=== PATIENT | female | born 1970 | race Caucasian/White ===

== ENCOUNTER 2017-08-04 11:50 | Emergency (ER) | payer OTHER, MEDICARE ==
[~2017-08-04 11:50] MED LIST: EXEN5PEN2 SQ; HYDR12.530 PO; INSU100V12 SQ; METO-296 PO; METO50TA9 PO; ONDA4TAB9 PO; PANT40TA25 PO; SUCR1TAB2 PO
[2017-08-04] MEDS ORDERED: ONDANSETRON HCL 4 MG/2 ML VIAL IVP ONE (12:11)
[2017-08-04 13:35] LABS: POTASSIUM 3.2 mmol/L (3.5-5.1)
[2017-08-04 13:37] LABS: BASOPHILS % (AUTO) 0.4 % (0.0-5.0); EOSINOPHILS % (AUTO) 0.2 % (0.0-8.0); HEMATOCRIT 44.1 % (36-48); LYMPHOCYTES % (AUTO) 8.2 % (21.0-51.0); MEAN CORPUSCULAR HEMOGLOBIN 29.5 pg (27.0-33.0); MEAN CORPUSCULAR HGB CONC 33.8 g/dL (32.0-36.0); MEAN CORPUSCULAR VOLUME 87.3 fL (79-99); MONOCYTES % (AUTO) 3.1 % (3.0-13.0); NEUTROPHILS % (AUTO) 88.1 % (40.0-77.0); PLATELET COUNT (AUTO) 312 K/uL (130-400); RED BLOOD CELL COUNT(AUTO) 5.06 MIL/uL (4.00-5.50); WHITE BLOOD COUNT (AUTO) 14.3 K/uL (4.8-10.8)
[2017-08-04] MEDS ORDERED: METOCLOPRAMIDE 10 MG/2 ML VIAL ONE (13:39)
[2017-08-04] MEDS ORDERED: FAMOTIDINE/PF 20 MG/2 ML VIAL IV ONE (13:41)
[2017-08-04 13:50] LABS: INR 0.95 (0.85-1.15)
[2017-08-04 13:52] LABS: ALBUMIN 3.5 g/dL (3.5-5.0); BILIRUBIN,TOTAL 0.5 mg/dL (0.2-1.0); TOTAL PROTEIN, SERUM 7.3 g/dL (6.0-8.3)
[2017-08-04] MEDS ORDERED: ASPIRIN 81MG TAB.CHEW ONE (15:51)
[2017-08-04] MEDS ORDERED: SODIUM CHLORIDE 0.9% 1000ML 1,000 ML IV ONE (15:51)
[2017-08-04 16:04] LABS: APPEARANCE,URINE Clear (CLEAR); BILIRUBIN,URINE Negative (NEGATIVE); COLOR,URINE Yellow (YELLOW); GLUCOSE, URINE (UA) >=1000 mg/dL (NEGATIVE); KETONES,URINE 40 mg/dL (NEGATIVE); LEUKOCYTE ESTERASE ,URINE Negative (NEGATIVE); NITRATE,URINE Negative (NEGATIVE); OCCULT BLOOD,URINE Negative (NEGATIVE); PH,URINE 5.5 (5.0-8.0); PROTEIN,URINE Negative (NEGATIVE); UROBILINOGEN,URINE 0.2 mg/dL (0.2-1.0)
[2017-08-04 16:09] LABS: AMPHET/METH SCREEN,URINE NEGATIVE (NEGATIVE); BARBITURATE SCREEN, URINE NEGATIVE (NEGATIVE); BENZODIAZEPINES SCREEN,URINE NEGATIVE (NEGATIVE); CANNABINOID SCREEN,URINE POSITIVE (NEGATIVE); COCAINE SCREEN,URINE NEGATIVE (NEGATIVE); OPIATE SCREEN,URINE NEGATIVE (NEGATIVE); PHENCYCLIDINE SCREEN,URINE NEGATIVE (NEGATIVE)
[2017-08-04 16:15] LABS: BACTERIA,URINE Moderate /HPF (None Seen); RBC,URINE 0-1 /HPF (0-1); SQUAMOUS EPITHELIAL CELL,UR Rare /LPF (0-2)
== END 2017-08-04 17:35 | disposition short-term general hospital (02) ==
LOC: EDH 11:50
DX: I63.8 Other cerebral infarction (principal); E11.9 Type 2 diabetes mellitus without complications; Z79.4 Long term (current) use of insulin; Z88.6 Allergy status to analgesic agent
CPT/HCPCS: 36415; 70450; 70551; 80053; 80305; 81001; 82550; 82553; 82948; 83690; 84484; 85025; 85610; 85730; 93005; 96361; 96374; 96375; 99285; J2405; J2765; J3490; J7030

== ENCOUNTER 2019-07-11 14:25 | Observation (INO) | payer MEDICARE, OTHER ==
[~2019-07-11] VITALS: Ht 165.1 cm; Wt 81.9 kg
[~2019-07-11 14:25] MED LIST changes: +ONDA-104 PO; -ONDA4TAB9 PO
[2019-07-11 15:04] LABS: BASOPHILS % (AUTO) 0.5 % (0.0-5.0); EOSINOPHILS % (AUTO) 3.4 % (0.0-8.0); HEMATOCRIT 41.5 % (36-48); LYMPHOCYTES % (AUTO) 20.8 % (21.0-51.0); MEAN CORPUSCULAR HGB CONC 33.5 g/dL (32.0-36.0); MEAN CORPUSCULAR VOLUME 92.4 fL (79-99); MONOCYTES % (AUTO) 4.9 % (3.0-13.0); NEUTROPHILS % (AUTO) 70.1 % (40.0-77.0); PLATELET COUNT (AUTO) 266 K/uL (130-400); RED BLOOD CELL COUNT(AUTO) 4.49 MIL/uL (4.00-5.50); RED CELL DISTRIBUTION WIDTH 12.3 % (11.0-15.5); WHITE BLOOD COUNT (AUTO) 9.4 K/uL (4.8-10.8)
[2019-07-11 15:05] LABS: APPEARANCE,URINE CLEAR (CLEAR); BILIRUBIN,URINE NEGATIVE (NEGATIVE); COLOR,URINE YELLOW (YELLOW); GLUCOSE, URINE (UA) >=1000 mg/dL (NEGATIVE); KETONES,URINE NEGATIVE (NEGATIVE); LEUKOCYTE ESTERASE ,URINE NEGATIVE (NEGATIVE); NITRATE,URINE NEGATIVE (NEGATIVE); OCCULT BLOOD,URINE NEGATIVE (NEGATIVE); PROTEIN,URINE NEGATIVE (NEGATIVE); UROBILINOGEN,URINE 0.2 mg/dL (0.2-1.0)
[2019-07-11 15:16] LABS: POTASSIUM 4.4 mmol/L (3.5-5.1)
[2019-07-11 15:17] LABS: AMORPHOUS SEDIMENT,UR Moderate /LPF (None Seen); BACTERIA,URINE Moderate /HPF (None Seen); MUCUS,URINE Moderate LPF (None Seen); SQUAMOUS EPITHELIAL CELL,UR Many /HPF (0-2)
[2019-07-11 15:20] LABS: ALBUMIN 3.3 g/dL (3.5-5.0); BILIRUBIN,TOTAL 0.3 mg/dL (0.2-1.0)
[2019-07-11 15:21] LABS: INR 0.94 (0.85-1.15); PARTIAL THROMBOPLASTIN TIME 25.3 SEC (26.3-35.5); PROTHROMBIN TIME 9.9 SEC (9.6-11.6)
[2019-07-11] MEDS ORDERED: IOHEXOL-350 75 ML VIAL IV ONE (15:35)
[2019-07-11 17:04] LABS: AMPHET/METH SCREEN,URINE NEGATIVE (NEGATIVE); BARBITURATE SCREEN, URINE NEGATIVE (NEGATIVE); BENZODIAZEPINES SCREEN,URINE NEGATIVE (NEGATIVE); CANNABINOID SCREEN,URINE POSITIVE (NEGATIVE); COCAINE SCREEN,URINE NEGATIVE (NEGATIVE); OPIATE SCREEN,URINE NEGATIVE (NEGATIVE); PHENCYCLIDINE SCREEN,URINE NEGATIVE (NEGATIVE)
[2019-07-11] MEDS ORDERED: GLUCAGON 1MG KIT 1 MG ML IM PRN (19:15)
[2019-07-11] MEDS ORDERED: DEXTROSE 50%-WATER 50 ML DISP.SYRIN IV PRN (19:15)
[2019-07-11] MEDS ORDERED: SODIUM CHLORIDE 0.9% 1000ML 1,000 ML IV ONE (20:11)
[2019-07-11] MEDS ORDERED: ACETAMINOPHEN 325 MG TAB ONE (20:23)
[2019-07-11] MEDS ORDERED: ATORVASTATIN CALCIUM 20 MG TABLET ONE (20:53)
[2019-07-11] MEDS ORDERED: FAMOTIDINE/PF 20 MG/2 ML VIAL IV ONE (20:53)
[2019-07-11] MEDS ORDERED: ATORVASTATIN CALCIUM 20 MG TABLET PO SCH (21:00)
[2019-07-11] MEDS: INSULIN HUMULIN R 100 UNIT/ML 3ML SQ SCH (21:00)
[2019-07-11] MEDS: FAMOTIDINE/PF 20 MG/2 ML VIAL IV SCH (21:00)
[2019-07-11] MEDS ORDERED: HYDRALAZINE HCL 20 MG/ML VIAL IV PRN (21:45)
[2019-07-11] MEDS ORDERED: INSULIN HUMULIN R 100 UNIT/ML 3ML ONE (22:10)
[2019-07-11 22:55] VITALS: BP 146/85
[2019-07-11] MEDS ORDERED: CLOP75TA32 PO (23:07)
[2019-07-11] MEDS ORDERED: ATOR40TA69 PO (23:07)
[2019-07-11] MEDS ORDERED: SERT100T12 PO (23:07)
[2019-07-11] MEDS ORDERED: METO-408 PO (23:07)
[2019-07-11] MEDS ORDERED: TRAZ-185 PO (23:07)
[2019-07-12 04:00] VITALS: BP 158/81
[2019-07-12 05:02] LABS: BASOPHILS % (AUTO) 0.8 % (0.0-5.0); EOSINOPHILS % (AUTO) 7.4 % (0.0-8.0); HEMATOCRIT 40.9 % (36-48); LYMPHOCYTES % (AUTO) 27.3 % (21.0-51.0); MEAN CORPUSCULAR HEMOGLOBIN 30.7 pg (27.0-33.0); MEAN CORPUSCULAR HGB CONC 32.5 g/dL (32.0-36.0); MEAN CORPUSCULAR VOLUME 94.5 fL (79-99); MONOCYTES % (AUTO) 7.6 % (3.0-13.0); NEUTROPHILS % (AUTO) 56.6 % (40.0-77.0); PLATELET COUNT (AUTO) 259 K/uL (130-400); RED BLOOD CELL COUNT(AUTO) 4.33 MIL/uL (4.00-5.50); RED CELL DISTRIBUTION WIDTH 12.4 % (11.0-15.5); WHITE BLOOD COUNT (AUTO) 8.8 K/uL (4.8-10.8)
[2019-07-12] MEDS ORDERED: ACETAMINOPHEN 325 MG TAB PO PRN (05:30)
[2019-07-12 05:45] LABS: CREATINE KINASE, TOTAL 86 U/L (21-232); MYOGLOBIN 52 ng/mL (10-92); TROPONIN I < 0.04 ng/mL (0.00-0.06)
[2019-07-12 05:57] LABS: ALANINE AMINOTRANSFERASE 19 U/L (12-78); ALBUMIN 3.2 g/dL (3.5-5.0); ASPARTATE AMINOTRANSFERASE 13 U/L (10-37); BILIRUBIN,TOTAL 0.2 mg/dL (0.2-1.0); CARBON DIOXIDE 27 mmol/L (21-32); CHLORIDE 105 mmol/L (101-111); GLOMERULAR FILTR. RATE CALC 63 mL/min (>60); GLUCOSE,RANDOM 132 mg/dL (70-105); POTASSIUM 3.9 mmol/L (3.5-5.1); SODIUM SERUM 139 mmol/L (136-145); TOTAL PROTEIN, SERUM 6.6 g/dL (6.0-8.3); UREA NITROGEN, BLOOD 13 mg/dL (7-18)
[2019-07-12] MEDS: ONDANSETRON HCL 4 MG/2 ML VIAL IVP PRN (05:58)
[2019-07-12] MEDS: INSULIN HUMULIN R 100 UNIT/ML 3ML SQ SCH ×4 (06:49→20:33)
[2019-07-12 08:00] VITALS: BP 149/77
[2019-07-12] MEDS ORDERED: ENOXAPARIN SODIUM 30 MG/0.3 ML SQ SCH (09:00)
--- NOTE | 2019-07-12 09:15 | NUR ---
COGNITIVE-LINGUISTIC EVAL COMPLETED. PT AT BASELINE. EVALUATION: Pt AAOX3 INDEPENDENTLY. Pt ABLE TO REQUEST WANTS AND NEEDS INDEPENDENTLY. Pt ABLE TO ANSWER SIMPLE YES/NO QUESTIONS AND OPEN ENDED QUESTIONS. Pt INTELLIGIBLE AT 100% ACCURACY DURING RUNNING SPEECH. Pt ABLE TO STATE ANSWERS TO SAFETY AWARENESS QUESTIONS. Pt ABLE TO RECALL DETAILS OF EVENTS THAT OCCURRED DURING THE DAY. Pt ANXIOUS AT THE TIME OF THE EVALUATION, AND STATED THAT SHE WAS EASILY ANGRY BY ISSUES. Pt CURRENTLY AT BASELINE. NURSE INFORMED Pt REQUESTING PSYCHIATRIC CONSULT AT THIS TIME. G-CODES SPOKEN LANGUAGE EXPRESSION: [id number] Addendum: 07/12/19 at 1052 by LEILANI THOMPSON [facility] Amended: Links added.
[2019-07-12] MEDS: CLOPIDOGREL BISULFATE 75 MG TAB PO SCH (10:04)
[2019-07-12] MEDS: FAMOTIDINE/PF 20 MG/2 ML VIAL IV SCH ×2 (10:04→20:32)
--- NOTE | 2019-07-12 10:28 | NUR ---
DYSPHAGIA EVAL COMPLETED. -S/S OF ASPIRATION. RECOMMEND REGULAR TEXTURE, THIN LIQUIDS; PILLS WHOLE WITH LIQUIDS. Addendum: 07/12/19 at 1030 by LEILANI THOMPSON, [facility] Amended: Links added.
[2019-07-12 11:52] VITALS: BP 131/81
[2019-07-12] MEDS: KETOROLAC TROMETHAMINE 15MG/ML IV PRN ×2 (13:16→20:32)
[2019-07-12 16:00] VITALS: BP 135/73
--- NOTE | 2019-07-12 16:00 | NUR ---
CM NOTE NEW REFERRAL FOR [facility], MEET WITH PATIENT IN ROOM, JAMES SIGNED, CLINICALS AND NOTES FAXED TO [facility], PER UNA, JOSE. PENDING AUTHORIZATION. CM TO FOLLOW UP ACCORDINGLY.
--- NOTE | 2019-07-12 16:40 | NUR ---
Initial Assessment Patient lives alone. Emergency contact is friend/provider, Fatemeh Cisneros, . She has no home health but does have [facility] with [facility].5 hours a week. DME: glucometer (uses insulin). Patient states she needs help with ADL's and does not drive. PCP is Dr. Alvaro Wright at [facility] in [place]. Pharmacy is [facility] in [facility]. order for referral for inpatient rehab. CM, Katherine Hernandez, met with patient and obtained signature for JAMES/Choice form. Referral sent. Pending acceptance. Addendum: 07/12/19 at 1644 by OSCAR JENNINGS SS Amended: Links added.
--- NOTE | 2019-07-12 17:00 | NUR ---
NOTE DR FLORIAN CAME AND ASSESSED PATIENT SAID NO MRI WAS NEEDED ESPECIALLY SICNE PATIENT IS NOT CANDIDATE BECAUSE OF NERVE STIMULATOR SHE HAS FOR LOWER BACK PAIN. SHE WILL BE EVALUATED BY INPATIENT REHANB TOMORROW AND SHE WILL NEED CONSULT WITH INTERVENTIONAL NEUROLOGIST SINCE SHE FAILED TO FOLLOW UP WITH THEM 3 YEASR AGO AFTER SHE HAD FIRST STROKE. NADER UNDERSTANDS SHE NEEDS TO DO THIS AND SHE IS WILLING ACCORDING TO HER AT THIS TIME AND WHAT SHE SPOKE TO DR FLORIAN ABOUT. CASE MANAGEMENT WORKING ON TRANSFER.
[2019-07-12] MEDS: IBUPROFEN 400 MG TABLET PO SCH ×2 (17:52→20:30)
[2019-07-12] MEDS: ASPIRIN 81 MG EC TAB PO SCH (17:52)
[2019-07-12 20:00] VITALS: BP 168/71
[2019-07-12] MEDS ORDERED: TRAZODONE HCL 50 MG TAB PO SCH (21:00)
[2019-07-12] MEDS ORDERED: ATORVASTATIN CALCIUM 40 MG TABLET PO SCH (21:00)
[2019-07-13] VITALS: BP 159/78
[2019-07-13] MEDS: IBUPROFEN 400 MG TABLET PO SCH ×4 (00:30→13:42)
[2019-07-13 04:00] VITALS: BP 140/70
[2019-07-13] MEDS: INSULIN HUMULIN R 100 UNIT/ML 3ML SQ SCH ×2 (06:31→13:49)
[2019-07-13] MEDS: KETOROLAC TROMETHAMINE 15MG/ML IV PRN (07:37)
[2019-07-13 08:00] VITALS: BP 130/78
[2019-07-13] MEDS ORDERED: CLOPIDOGREL BISULFATE 75 MG TAB PO SCH (09:00)
[2019-07-13] MEDS ORDERED: SERTRALINE HCL 50 MG TABLET PO SCH (09:00)
[2019-07-13] MEDS ORDERED: METOPROLOL SUCCINATE 50 MG TAB.SR.24H PO SCH (09:00)
[2019-07-13] MEDS: FAMOTIDINE/PF 20 MG/2 ML VIAL IV SCH (09:29)
[2019-07-13] MEDS: CLOPIDOGREL BISULFATE 75 MG TAB PO SCH (09:29)
[2019-07-13] MEDS: ASPIRIN 81 MG EC TAB PO SCH (09:31)
--- NOTE | 2019-07-13 11:11 | NUR ---
CM NOTE PER UNA AT IRU, PATIENT DENIED DUE TO HIGH MOBILITY AND FUNCTION. DR. STORY MADE AWARE. DC PLAN CHANGED, PATIENT TO FOLLOW UP WITH PCP FOR REFERRAL FOR EITHER HH WITH PT OR OUTPATIENT PT. PATIENT VERBALIZED UNDERSTANDING OF DC PLAN. CEM VELARDE, PRIMARY NURSE, MADE AWARE. POSSIBLE DISCHARGE HOME TODAY.
[2019-07-13 12:00] VITALS: BP 128/56
[2019-07-13] MEDS ORDERED: ASPI-1197 PO (13:30)
[2019-07-13] MEDS ORDERED: TRAZ-185 PO (13:30)
[2019-07-13] MEDS ORDERED: SERT100T12 PO (13:30)
[2019-07-13] MEDS ORDERED: CLOP75TA32 PO (13:30)
[2019-07-13] MEDS ORDERED: METO-408 PO (13:30)
[2019-07-13] MEDS: ONDANSETRON HCL 4 MG/2 ML VIAL IVP PRN (13:42)
[2019-07-13 16:00] VITALS: BP 123/66
--- NOTE | 2019-07-13 17:08 | NUR ---
Discharge instructions reviewed, prescriptions given and patient notified to go to PCP for referral to Dr. Rock's as requested by office for follow up in 2 weeks. Also provided patient phone number and Dr. west to schedule appointments with Dr. Adair. Stroke symptoms reviewed and educated on importance of seeking emergency care as soon as symptoms present. Importance of continuing with antiplatelet therapy to prevent stroke enforced. Patient verbalized understanding if all instructions.
== END 2019-07-13 17:15 | disposition home or self-care (01) ==
LOC: EDH 14:25 → EDHIP 18:51 → 3DH 21:41
PROVIDERS: ADMIT Internal Medicine; ATTEND Internal Medicine
DX: I69.354 Hemiplegia and hemiparesis following cerebral infarction affecting left non-dominant side (principal); I10 Essential (primary) hypertension; E11.9 Type 2 diabetes mellitus without complications; F32.9 Major depressive disorder, single episode, unspecified; F41.9 Anxiety disorder, unspecified; F19.10 Other psychoactive substance abuse, uncomplicated; Z91.19 Patient's noncompliance with other medical treatment and regimen; Z86.73 Personal history of transient ischemic attack (TIA), and cerebral infarction without residual deficits; Z87.891 Personal history of nicotine dependence; Z90.89 Acquired absence of other organs; Z90.49 Acquired absence of other specified parts of digestive tract; Z88.5 Allergy status to narcotic agent; Z79.82 Long term (current) use of aspirin; Z79.891 Long term (current) use of opiate analgesic; Z79.4 Long term (current) use of insulin; Z79.899 Other long term (current) drug therapy; W01.0XXA Fall on same level from slipping, tripping and stumbling without subsequent striking against object, initial encounter; Y93.01 Activity, walking, marching and hiking; Y92.512 Supermarket, store or market as the place of occurrence of the external cause
CPT/HCPCS: 36415 ×2; 70450; 70496; 70498; 71045; 80053 ×2; 80305; 81001; 82550 ×2; 82948 ×7; 83036; 83721; 83874; 84484 ×2; 85025 ×2; 85610; 85730; 92522; 92610; 93005; 96372 ×2; 96374; 96375; 96376 ×2; 97161; 99284; G0378 ×45; G8978; G8979; G8980; G8981; G8982; G8983; J1815 ×2; J1885 ×3; J2405 ×2; J3490 ×4; J7030; Q9967

== ENCOUNTER 2020-09-16 10:20 | Emergency (ER) | payer OTHER ==
[~2020-09-16 10:20] MED LIST changes: +ASPI-1197 PO; +ATOR40TA69 PO; +CLOP75TA32 PO; -EXEN5PEN2 SQ; -HYDR12.530 PO; -INSU100V12 SQ; -METO-296 PO; +METO-408 PO; -METO50TA9 PO; -ONDA-104 PO; -PANT40TA25 PO; +SERT-440 PO; -SUCR1TAB2 PO; +TRAZ-185 PO
[2020-09-16] MEDS ORDERED: ACETAMINOPHEN 500 MG TABLET ONE (11:05)
== END 2020-09-16 12:13 | disposition home or self-care (01) ==
LOC: EDH 10:20
DX: S39.012A Strain of muscle, fascia and tendon of lower back, initial encounter (principal); S70.02XA Contusion of left hip, initial encounter; E10.8 Type 1 diabetes mellitus with unspecified complications; I10 Essential (primary) hypertension; F14.10 Cocaine abuse, uncomplicated; Z88.6 Allergy status to analgesic agent; Z90.710 Acquired absence of both cervix and uterus; Y08.89XA Assault by other specified means, initial encounter; Y93.89 Activity, other specified; Y92.89 Other specified places as the place of occurrence of the external cause; Y99.8 Other external cause status
CPT/HCPCS: 72040; 72100; 73502

== ENCOUNTER 2022-11-07 14:03 | Emergency (ER) | payer OTHER ==
[~2022-11-07] VITALS: Ht 165.1 cm; Wt 77.1 kg
[2022-11-07] MEDS ORDERED: 0.9%NACL 1000ML 1,000 ML IV ONE (17:30)
[2022-11-07 18:10] LABS: APPEARANCE,URINE CLEAR (CLEAR); BILIRUBIN,URINE NEGATIVE (NEGATIVE); COLOR,URINE COLORLESS (YELLOW); GLUCOSE, URINE (UA) NEGATIVE (NEGATIVE); KETONES,URINE NEGATIVE (NEGATIVE); LEUKOCYTE ESTERASE ,URINE NEGATIVE Leu/uL (NEGATIVE); NITRATE,URINE NEGATIVE (NEGATIVE); OCCULT BLOOD,URINE NEGATIVE (NEGATIVE); PROTEIN,URINE NEGATIVE (NEGATIVE); UROBILINOGEN,URINE 0.2 mg/dL (0.2-1.0)
[2022-11-07 18:14] LABS: BACTERIA,URINE RARE /HPF (None Seen); MUCUS,URINE RARE LPF (None Seen); RBC,URINE 0-1 /HPF (0-1)
[2022-11-07 18:17] LABS: BASOPHILS % (AUTO) 0.6 % (0.0-5.0); EOSINOPHILS % (AUTO) 2.4 % (0.0-8.0); HEMATOCRIT 37.8 % (36-48); LYMPHOCYTES % (AUTO) 40.7 % (21.0-51.0); MEAN CORPUSCULAR HEMOGLOBIN 29.8 pg (27.0-33.0); MEAN CORPUSCULAR HGB CONC 32.3 g/dL (32.0-36.0); MEAN CORPUSCULAR VOLUME 92.2 fL (79-99); MONOCYTES % (AUTO) 5.1 % (3.0-13.0); PLATELET COUNT (AUTO) 331 K/uL (130-400); RED CELL DISTRIBUTION WIDTH 12.7 % (11.0-15.5); WHITE BLOOD COUNT (AUTO) 8.3 K/uL (4.8-10.8)
[2022-11-07 18:26] LABS: POTASSIUM 4.3 mmol/L (3.5-5.1)
[2022-11-07 18:35] LABS: ALBUMIN 4.2 g/dL (3.5-5.0); TOTAL PROTEIN, SERUM 8.2 g/dL (6.0-8.3)
[2022-11-07 19:56] VITALS: BP 145/81
== END 2022-11-07 20:56 | disposition admitted as inpatient to this hospital (09) ==
LOC: EDH 14:03 → EEVIPCON 14:03 → EDH 20:56
DX: R42 Dizziness and giddiness (principal); K52.9 Noninfective gastroenteritis and colitis, unspecified; I10 Essential (primary) hypertension; E11.9 Type 2 diabetes mellitus without complications; Z88.8 Allergy status to other drugs, medicaments and biological substances; Z79.899 Other long term (current) drug therapy; Z90.49 Acquired absence of other specified parts of digestive tract
CPT/HCPCS: 99285; 96360; 71045; 82550; 83874; 84484; 80053; 85025; 81001; 36415; 93005; J7030